=== PATIENT | female | born 1965 | race Caucasian/White ===

== ENCOUNTER 2019-07-17 06:56 | Day surgery (SDC) | payer OTHER ==
--- OUTSIDE RECORDS SUMMARY | 2019-07-17 06:57 | XMS REPORT ---
:1965 [facility] Address [address] [place] [address] Dr. Dover [address] [place] [id number] Care Team Providers Name Role Phone Unavailable Unavailable Unavailable Problems This patient has no known problems. Allergies, Adverse Reactions, Alerts This patient has no known allergies or adverse reactions. Medications This patient has no known medications.
[2019-07-17] MEDS ORDERED: NA CHLORIDE 0.9% 1,000 ML ONE ×2 (08:04→10:01)
[2019-07-17] MEDS ORDERED: LIDOCAINE 2% MPF 5 ML VIAL ONE (08:53)
[2019-07-17] MEDS ORDERED: FENTANYL CITR 100 MCG/2 ML ONE (08:53)
[2019-07-17] MEDS ORDERED: propofoL 200 MG/20 ML VIAL IV ONE (08:53)
[2019-07-17] MEDS ORDERED: MIDAZOLAM HCL 2 MG/2 ML INJ ONE (08:53)
[2019-07-17] MEDS ORDERED: KETOROLAC 30 MG/ML INJ ONE (09:42)
[2019-07-17] MEDS ORDERED: LIDOCAINE 1% 20 ML MDV ONE (10:01)
[2019-07-17] MEDS ORDERED: LIDOCAINE 1% W/EPI 1:100,000 MDV 20 ML VIAL ONE (10:02)
[2019-07-17] MEDS ORDERED: HYDROCODONE/APAP 5/325 MG TAB ONE (10:38)
[2019-07-17 12:09] VITALS: BP 111/71; TEMP 97; O2SAT 98
--- NOTE | 2019-07-17 20:44 | OP ---
Date of Procedure: 07/17/2019 Surgeon: Yashira Plasencia MD Preoperative Diagnoses: Postmenopausal bleeding. Postoperative Diagnosis: Postmenopausal bleeding. Procedure Performed: Hysteroscopy, D and C. Anesthesia: MAC plus paracervical block. Specimens: Endometrial curettings. Complications: No complications. Drains: No drains. Condition: Patient's condition is stable. Findings: Intrauterine cavity unremarkable. No abnormality seen. Curettings performed. Description Of Procedure: After informed consent was verified, patient was taken back to OR, placed in the supine fashion on the operating table. MAC given and placed in the dorsal lithotomy position. Speculum was placed to expose the cervix after Betadine prep was done x3 in the vulva, vagina, and perineal area. Anterior lip injected with 1% lidocaine mixed with 1:100,000 epinephrine at 4 o'clock and 8 o'clock positions as well, 5 mL on each side. Anterior lip grasped with 2 Allis clamps. A di agnostic SlimLine hysteroscope was used to enter the cervical canal and traversed under direct visual ization into the uterine cavity. The cavity was empty, unremarkable, and distorted. No masses. End ometrium unremarkable, atrophic. Scope removed. Endometrial curettings performed with a #1 curette, handed off for permanent pathology. All instruments were removed. Instrument, needle, and sponge c ounts were correct at the end of the case. The patient tolerated the procedure well, she was recover ed from anesthesia and taken to the PACU in stable condition. Blood sugar was 78 preop and she was g iven D50, so she will have a fingerstick check in the PACU before she was discharged. Patient is roxanna betic, on Trulicity, long-acting insulin and metformin. She can resume her regular diet when she goe s home. SK/MODL Voice ID: [id number] Report ID: [id number]
== END 2019-07-17 11:15 | disposition home or self-care (01) ==
LOC: PRE 06:56
PROVIDERS: ATTEND Obstetrics & Gynecology
PROC: 0UJD8ZZ Inspection of Uterus and Cervix, Via Natural or Artificial Opening Endoscopic (ICD-10-PCS; 2019-07-17)
PROC: 0UDB7ZX Extraction of Endometrium, Via Natural or Artificial Opening, Diagnostic (ICD-10-PCS; principal; 2019-07-17 09:30)
DX: N95.0 Postmenopausal bleeding (principal); N94.11 Superficial (introital) dyspareunia; N39.3 Stress incontinence (female) (male); E11.9 Type 2 diabetes mellitus without complications; I10 Essential (primary) hypertension; E78.00 Pure hypercholesterolemia, unspecified; Z79.4 Long term (current) use of insulin; Z79.82 Long term (current) use of aspirin; Z83.3 Family history of diabetes mellitus; Z82.49 Family history of ischemic heart disease and other diseases of the circulatory system
CPT/HCPCS: 81025; 82947 ×2; 88305; 58558; J2704; J2250; J3010; J7030 ×2

== ENCOUNTER 2023-02-08 06:58 | Day surgery (SDC) | payer OTHER ==
[2023-02-06 09:08] LABS: Absolute Lymphocytes (CBC) 2.6 K/uL (0.7-4.9); Hematocrit 39.2 % (36.0-45.0); Lymphocytes % 35.5 % (15.3-44.8); MPV 7.9 fL (7.6-11.3); Platelets 267 thou/uL (152-406); RBC Red Blood Cell Count 4.13 M/uL (3.86-4.86)
[2023-02-06 09:31] LABS: Specific Gravity 1.023 (1.005-1.030); Urine Clarity Turbid (Clear); Urine Color Yellow (Yellow); Urine Glucose NEGATIVE (Negative)
[2023-02-06 09:32] LABS: Transitional Epithelial <5 /HPF (None Seen); Urine Bacteria 20-50 /HPF (<20); Urine Bilirubin NEGATIVE (Negative); Urine Blood 3+ (Negative); Urine Mucus Slight /HPF (None Seen); Urine Protein TRACE (Negative); Urine RBC >50 /HPF (None Seen); Urine Urobilinogen Normal (Normal)
[2023-02-08] MEDS ORDERED: SCOPOLAMINE HYDROBROMIDE PATCH TD ONE (07:27)
[2023-02-08] MEDS ORDERED: NA CHLORIDE 0.9% 1,000 ML ONE ×2 (07:27→09:48)
[2023-02-08] MEDS ORDERED: propofoL 200 MG/20 ML VIAL IV ONE (07:35)
[2023-02-08] MEDS ORDERED: LIDOCAINE 2% MPF 5 ML VIAL ONE (07:36)
[2023-02-08] MEDS ORDERED: ROCURONIUM 50 MG/5 ML VIAL IV ONE ×2 (07:36→09:57)
[2023-02-08] MEDS ORDERED: MIDAZOLAM HCL 2 MG/2 ML INJ ONE (07:37)
[2023-02-08] MEDS ORDERED: GLYCOPYRROLATE 0.2 MG/ML SYR ONE (07:39)
[2023-02-08] MEDS ORDERED: NEOSTIGMINE 1 MG/ML -10 ML VIAL ONE (07:43)
[2023-02-08] MEDS ORDERED: ONDANSETRON 4 MG/2 ML VIAL ONE (07:43)
[2023-02-08] MEDS: CEFAZOLIN SODIUM 2 GM/VIAL ONE ×2 (07:45→08:45)
[2023-02-08] MEDS ORDERED: FENTANYL CITR 100 MCG/2 ML ONE ×2 (07:48→09:50)
[2023-02-08] MEDS ORDERED: SUCCINYLCHOLINE 20 MG/ML (10 ML) IV ONE (08:11)
[2023-02-08] MEDS: BUPIVACAINE 0.25% PF 30 ML VIAL ONE ×2 (09:20→11:41)
[2023-02-08] MEDS ORDERED: EPHEDRINE SULF 50 MG/ML VIAL ONE (09:39)
[2023-02-08] MEDS ORDERED: Phenylephrine HCl 10 MG/ML 1 ML VIAL ONE (09:46)
[2023-02-08] MEDS ORDERED: LIDOCAINE HCL/EPINEPHRINE 20 ML MDV ONE (10:35)
[2023-02-08] MEDS ORDERED: Mastisol Adhesive Liq ONE (11:09)
[2023-02-08] MEDS: HYDROMORPHONE HCL 1 MG/ML INJ ONE ×4 (11:53→12:14)
[2023-02-08] MEDS ORDERED: MEPERIDINE HCL 25 MG/ML SYR ONE (13:00)
[2023-02-08] MEDS ORDERED: PROMETHAZINE INJ 25 MG/ML AMP ONE (14:29)
[2023-02-08 16:06] VITALS: TEMP 97
[2023-02-08 16:32] VITALS: BP 141/86; O2SAT 97
--- NOTE | 2023-02-09 07:40 | OP ---
Date of Procedure: 02/08/2023 Surgeon: Yashira Plasencia MD Property Claims Adjuster: Meron Burnette. Preoperative Diagnoses: Postmenopausal bleeding and suburethral mesh extrusion, left ovarian cyst. Postoperative Diagnoses: Postmenopausal bleeding and suburethral mesh extrusion, left ovarian cyst, and uterine prolapse, rectocele. Procedures Performed: Total laparoscopic hysterectomy, bilateral salpingo-oophorectomy, pelvic washi ngs, uterosacral ligament suspension, colpopexy, vaginal excision of suburethral mesh completely from the mid urethral area and then urethral bulking with cystoscopy using Bulkamid. Specimens: Uterus, pelvic washings, bilateral tubes and ovaries. Complications: No complications. Drains: No drains. Estimated Blood Loss: 50. Urine Output: 200. Fluids: LR 1500. Findings: Left ovarian cyst was noted with slightly cystic external surface changes. Peritoneal flu id was washed before the procedure started. Fibroids were seen on the uterus. Other ovary, both tub es unremarkable. Small amount of endometriosis seen. Uterine prolapse was significant wa s at 0. Then, examination under anesthesia was performed. There was also a rectocele that was stage II. Urethral sling was completely extruded and epithelium healed under it. The exposure was all th e way from 1 fornix to the other with exception of a very small area on the right inferior aspect. The patient had postmenopausal bleeding and she was evaluated with ultrasound. Endometrial sampling detected; however, this was an ongoing thing and was not a slight spotting, although there is no diagnosed abnormality in the uterus was reviewed with the patient. She wanted to p roceed with hysterectomy. At the same time, for mesh exposure, she wanted this excised and she also wanted to ensure that the left ovarian cyst that was found incidentally during the workup was also ex cised. So, I consented her for hysterectomy and bilateral salpingo-oophorectomy, pelvic washings ful ly understanding that she would be referred to an oncologist . Excision of the mesh was discussed with the patient the mesh being removed. The patient u nderstood this; however, she wants to have better back up than expectant management for RC. They of fered her urethral bulking and consented. After she was placed in a supine fashion, SCDs were placed and 2 g of Ancef were given. General anes thesia was given. She was placed in a dorsal lithotomy position using Ciaran stirrups. Abdomen prepp ed with ChloraPrep, vulva, vagina and perineum with Betadine. Speculum was placed to expose the cerv ix. Anterior lip grasped with 2 Allis clamps, dilated to 14-Gibraltarian. Medium cup uterine manipulator was introduced into place and fixed in place. Dowd was placed to drain the bladder and attached to a drainage bag. This area was then draped. A 1 cm infraumbilical incision was made with a scalpel using the laparoscopy technique. The fascia w as incised, tagged with 0 Vicryl sutures. Peritoneum was entered bluntly. S retractors were used to place the Namrata and then after adequate insufflation, site of entry was checked and was unremarkabl e. Two 5 ports were placed in the left and right lower quadrant and a 10 suprapubic port. Then, the patient was placed in Trendelenburg position and started. Pelvic washings were first performed. There were no adhesions in the pelvic cavity. A small amount of endometriosis seen in the posterior aspect of the vaginal cuff area near the left uterosacral liga ment. The left round ligament was taken down. The broad ligament was opened up. Dissection was performed between the ureter and IP ligaments were isolated and cauterized and cut and . Then, the re st of the broad ligament taken down to the level of the uterine vessels and peritoneum opened anterio rly and posteriorly. Similar dissection performed exactly on the opposite side. Then, the bladder f lap was completely dissected inferior to the anterior vaginal wall at by 2 cm. Once this was done and adequately exposed, the vessels were taken down with the help of the LigaSure and then t he cardinal ligaments. Monopolar hook blade used to perform a circumferential colpotomy and vessels pulled through vagina. After the vaginal occluder was placed, the vaginal cuff was closed with the help of interrupted 0 Holden ryl sutures, 2 simple sutures at both corners and 3 [id number] in the center. There was uterine prolapse since the uterosacral colpopexy was performed. The uterosacral ligaments were identified. A 2-0 PDS suture was placed through the uterosacral on the left side, po sterior vaginal wall, anterior vaginal wall, and tied down the bladder was dissected infer iorly and the anterior vaginal wall using before the sutures were placed. Once these were placed, there was excellent peristalsis of the ureters on both sides. No evidence of any trauma to them. All the trocars were removed after thorough irrigation and suction. Bleeding at the suprapubi c and left lower quadrant skin incision sites was taken care of with Bovie to secure hemostasis. Onc e this was done, I closed the umbilical port with the fascial incision closure using the 0 Vicryl sut ures tied to each other. All skin incisions closed with interrupted 4-0 Vicryl, suprapubic fascial s ite with simple 0 Vicryl stitch. Mid urethral area was injected with dilute vasopressin. Dowd was removed after palpating the subure thral area. No evidence that there was thinning in this area. After 10 mL of 1% lidocaine with 1:10 0,000 epinephrine was injected in this area, the superior and inferior flaps were opened up. The mes h was dissected all the way to the fornices and excised on both sides. Once this was done, flaps wer e raised in the inferior and superior portion after thorough irrigation and suction, hemostasis. A 3 -0 Vicryl suture was used in a horizontal mattress fashion to close this entire incision. A 0-degree cystoscope was used to visualize the urethra. No evidence of any trauma. Bladder was visualized with a 30-degree lens, normal saline, and 17-Gibraltarian sheath. Excellent jets of urine from both ureteric orifices and no evidence of any trauma or foreign body in the bladder. Urethral Bulking: The Bulkamid through the cystoscope sheath was attached. Then, a mid urethral are a was inspected and after taking the tip of the scope through the internal meatus, the needle was ext ended to 2 cm into the bladder, then pulled back into the mid urethral area 2 cm proximal to the dist al . Then, the injection was carried down. A 0.5 mL was injected in 4 quadrants injecting 0.1 mL in each side. There this procedure was here completed and the patient will have a voiding trial in the PACU. She was recovered from anesthesia. Instrument, needle, and sponge count s were correct. Taken to the PACU in a stable condition. Her was debriefed about her proced ure. DARYL/DELVIS Voice ID: [id number] Report ID: [id number]
== END 2023-02-08 15:45 | disposition home or self-care (01) ==
LOC: OR 06:58
PROVIDERS: ATTEND Obstetrics & Gynecology
PROC: 0UT24ZZ Resection of Bilateral Ovaries, Percutaneous Endoscopic Approach (ICD-10-PCS; 2023-02-08)
PROC: 0UT74ZZ Resection of Bilateral Fallopian Tubes, Percutaneous Endoscopic Approach (ICD-10-PCS; 2023-02-08)
PROC: 0USG4ZZ Reposition Vagina, Percutaneous Endoscopic Approach (ICD-10-PCS; 2023-02-08)
PROC: 0TVD8ZZ Restriction of Urethra, Via Natural or Artificial Opening Endoscopic (ICD-10-PCS; 2023-02-08)
PROC: 0UPH7JZ Removal of Synthetic Substitute from Vagina and Cul-de-sac, Via Natural or Artificial Opening (ICD-10-PCS; 2023-02-08)
PROC: 0UT94ZZ Resection of Uterus, Percutaneous Endoscopic Approach (ICD-10-PCS; principal; 2023-02-08 08:00)
DX: N95.0 Postmenopausal bleeding (principal); T83.7 Complications due to implanted mesh and other prosthetic materials; N83.202 Unspecified ovarian cyst, left side; I10 Essential (primary) hypertension; E11.9 Type 2 diabetes mellitus without complications
CPT/HCPCS: 87088; 85025; 81001; 87086; 36415; 86900; 88108; 86850; 86901; 82947 ×2; 88305; 88307; 58571; 57283; 51715; 57287 ×2; J2550; J2704; J2710; J2371; J2001; J2250; J3010 ×2; J2175; J1170 ×2; J2405; J7030 ×2; L8606